=== PATIENT | female | born 1970 | race Caucasian/White ===

== ENCOUNTER 2017-08-07 11:50 | Emergency (ER) | payer BC, OTHER ==
--- NOTE | 2017-08-07 13:12 | ER ---
Nurse's Notes [facility] Name: Vale Fuentes Age: 47 yrs Sex: Female : 1970 Arrival Date: 08/07/2017 Time: 11:54 Bed 13 Private MD: None, None Diagnosis: Cutaneous abscess of left axilla Presentation: 08/07 12:35 Presenting complaint: Patient states: abscess to left axilla X 2 weeks, draining iw yesterday, started feeling achy. Transition of care: patient was not received from another setting of care. Onset of symptoms was July 26, 2017. Risk Assessment: Do you want to hurt yourself or someone else? Patient reports no desire to harm self or others. Initial Sepsis Screen: Does the patient meet any 2 criteria? No. Patient's initial sepsis screen is negative. Does the patient have a suspected source of infection? No. Patient's initial sepsis screen is negative. Care prior to arrival: None. 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 - Social history:: Smoking status: Patient/guardian denies using tobacco. - Ebola Screening: : Patient negative for fever greater than or equal to 101.5 degrees Fahrenheit, and additional compatible Ebola Virus Disease symptoms Patient denies exposure to infectious person Patient denies travel to an Ebola-affected area in the 21 days before illness onset No symptoms or risks identified at this time. Screenin:45 Abuse screen: Denies threats or abuse. Nutritional screening: No deficits noted. aa5 Tuberculosis screening: No symptoms or risk factors identified. Fall Risk None identified. Assessment: 12:45 General: Appears comfortable, Behavior is calm, cooperative. Pain: Complains of pain in aa5 left axillae Pain does not radiate. Pain currently is 5 out of 10 on a pain scale. Quality of pain is described as tender, Pain began 2 weeks ago Is continuous. Neuro: Level of Consciousness is awake, alert, obeys commands, Oriented to person, place, time, situation. Cardiovascular: Heart tones S1 S2 present Rhythm is regular. Respiratory: Airway is patent Respiratory effort is even, unlabored, Respiratory pattern is regular, symmetrical. GI: No signs and/or symptoms were reported involving the gastrointestinal system. : No signs and/or symptoms were reported regarding the genitourinary system. EENT: No signs and/or symptoms were reported regarding the EENT system. Derm: Skin is pink, warm \T\ dry. Abscess located on to left axillae is 2 abscess noted, one open and not draining at this time and one closed. Musculoskeletal: Range of motion: intact in all extremities. Vital Signs: 12:36 BP 138 / 88; Pulse 89; Resp 16 S; Temp 98.2; Pulse Ox 99% on R/A; Weight 54.43 kg; iw Height 5 ft. 2 in. (157.48 cm); Pain 5/10; 13:28 BP 119 / 77; Pulse 68; Resp 18; Pulse Ox 100% on R/A; tl3 12:36 Body Mass Index 21.95 (54.43 kg, 157.48 cm) iw ED Course: 11:54 Patient arrived in ED. mr 11:55 None, None is Private Physician. mr 12:36 Triage completed. iw 12:36 Arm band placed on. iw 12:40 Caitlin Campos FNP-C is [facility]. snw 12:40 Rogerio Ordonez MD is Attending Physician. snw 12:44 Silva Cornelius RN is Primary Nurse. aa5 12:45 Patient has correct armband on for positive identification. Placed in gown. Bed in low aa5 position. Call light in reach. Side rails up X2. Adult w/ patient. 13:02 Report given to BRYNN Leos. aa5 13:10 Miguel Brown MD is Referral Physician. snw 13:28 No provider procedures requiring assistance completed. Patient did not have IV access tl3 during this emergency room visit. Administered Medications: No medications were administered Outcome: 13:11 Discharge ordered by . snw 13:27 Discharged to home ambulatory. tl3 13:27 Condition: stable 13:27 Discharge instructions given to patient, family, Instructed on discharge instructions, follow up and referral plans. medication usage, Demonstrated understanding of instructions, follow-up care, medications, wound care, Prescriptions given X 3. 13:29 Patient left the ED. tl3 Signatures: Caitlin Campos, RACHAEL-C MANAGER SHIPPING-Trangw Ailin Molina Irene, RN Silva Ernst RN RN aa5 Dafne Jefferson RN RN tl3 Corrections: (The following items were deleted from the chart) 16:41 13:06 Report given to BRYNN Leos aa5
--- NOTE | 2017-08-07 13:12 | EDPHYS ---
Physician Documentation [facility] Name: Vale Fuentes Age: 47 yrs Sex: Female : 1970 Arrival Date: 08/07/2017 Time: 11:54 Bed 13 Private MD: None, None ED Physician Rogerio Ordonez HPI: 08/07 13:15 This 47 yrs old Female presents to ER via Ambulatory with complaints of Cyst. snw 13:15 Onset: The symptoms/episode began/occurred suddenly. Associated signs and symptoms: snw Pertinent positives: malaise, nausea. Modifying factors: The patient symptoms are alleviated by nothing, the patient symptoms are aggravated by pressure. The patient has not experienced similar symptoms in the past. The patient has not recently seen a physician, has seen Dr. Brown in the past. 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 - Social history:: Smoking status: Patient/guardian denies using tobacco. - Ebola Screening: : Patient negative for fever greater than or equal to 101.5 degrees Fahrenheit, and additional compatible Ebola Virus Disease symptoms Patient denies exposure to infectious person Patient denies travel to an Ebola-affected area in the 21 days before illness onset No symptoms or risks identified at this time. ROS: 13:15 Constitutional: Negative for fever, chills, and weight loss, + malaise Eyes: Negative snw for injury, pain, redness, and discharge, ENT: Negative for injury, pain, and discharge, Neck: Negative for injury, pain, and swelling, Cardiovascular: Negative for chest pain, palpitations, and edema, Respiratory: Negative for shortness of breath, cough, wheezing, and pleuritic chest pain. 13:15 Back: Negative for injury and pain, : Negative for injury, bleeding, discharge, and swelling, MS/Extremity: Negative for injury and deformity, Neuro: Negative for headache, weakness, numbness, tingling, and seizure, Psych: Negative for depression, anxiety, suicide ideation, homicidal ideation, and hallucinations. 13:15 Abdomen/GI: Positive for nausea. 13:15 Skin: Positive for abscess, of the left axilla. Exam: 13:15 Constitutional: This is a well developed, well nourished patient who is awake, alert, snw and in no acute distress. Head/Face: Normocephalic, atraumatic. Eyes: Pupils equal round and reactive to light, extra-ocular motions intact. Lids and lashes normal. Conjunctiva and sclera are non-icteric and not injected. Cornea within normal limits. Periorbital areas with no swelling, redness, or edema. ENT: Nares patent. No nasal discharge, no septal abnormalities noted. Tympanic membranes are normal and external auditory canals are clear. Oropharynx with no redness, swelling, or masses, exudates, or evidence of obstruction, uvula midline. Mucous membranes moist. Neck: Trachea midline, no thyromegaly or masses palpated, and no cervical lymphadenopathy. Supple, full range of motion without nuchal rigidity, or vertebral point tenderness. No Meningismus. Chest/axilla: Normal chest wall appearance and motion. Nontender with no deformity. Left axilla with 2 localized abscesses in linear alignment. + concern for tunneling, Moderate edema/induation. inferior abscess with + purulent discharge. Superior papule unroofed. Cardiovascular: Regular rate and rhythm with a normal S1 and S2. No gallops, murmurs, or rubs. Normal PMI, no JVD. No pulse deficits. Respiratory: Lungs have equal breath sounds bilaterally, clear to auscultation and percussion. No rales, rhonchi or wheezes noted. No increased work of breathing, no retractions or nasal flaring. Abdomen/GI: Soft, non-tender, with normal bowel sounds. No distension or tympany. No guarding or rebound. No evidence of tenderness throughout. Back: No spinal tenderness. No costovertebral tenderness. Full range of motion. Skin: Warm, dry with normal turgor. Normal color with no rashes, no lesions, and no evidence of cellulitis. MS/ Extremity: Pulses equal, no cyanosis. Neurovascular intact. Full, normal range of motion. Neuro: Awake and alert, GCS 15, oriented to person, place, time, and situation. Cranial nerves II-XII grossly intact. Motor strength 5/5 in all extremities. Sensory grossly intact. Cerebellar exam normal. Normal gait. Psych: Awake, alert, with orientation to person, place and time. Behavior, mood, and affect are within normal limits. Vital Signs: 12:36 BP 138 / 88; Pulse 89; Resp 16 S; Temp 98.2; Pulse Ox 99% on R/A; Weight 54.43 kg; iw Height 5 ft. 2 in. (157.48 cm); Pain 5/10; 13:28 BP 119 / 77; Pulse 68; Resp 18; Pulse Ox 100% on R/A; tl3 12:36 Body Mass Index 21.95 (54.43 kg, 157.48 cm) iw MDM: 12:40 Patient medically screened. snw 13:21 Data reviewed: vital signs, nurses notes. Data interpreted: Pulse oximetry: on room air snw is 99 %. Interpretation: normal. Counseling: I had a detailed discussion with the patient and/or guardian regarding: the historical points, exam findings, and any diagnostic results supporting the discharge/admit diagnosis, the presence of at least one elevated blood pressure reading (>120/80) during this emergency department visit, the need for outpatient follow up, to return to the emergency department if symptoms worsen or persist or if there are any questions or concerns that arise at home. Special discussion: I have referred the patient to see his PCP for further evaluation of high blood pressure. I discussed in detail with the patient the higher chance of wound infection based on his presenting history. Based on the history and exam findings, there is no indication for further emergent testing or inpatient evaluation. I discussed with the patient/guardian the need to see the general surgeon for further evaluation of the symptoms. I discussed with the patient/guardian the need to see the primary care provider for further evaluation of the symptoms. Administered Medications: No medications were administered Disposition: 08/07/17 13:11 Discharged to Home. Impression: Cutaneous abscess of left axilla. - Condition is Stable. - Discharge Instructions: Abscess, MRSA Infection, Adult, Heat Therapy. - Prescriptions for Clindamycin HCl 300 mg Oral Capsule - take 1 capsule by ORAL route every 8 hours for 10 days; 30 capsule. Diclofenac Sodium 75 mg Oral Tablet Sustained Release - take 1 tablet by ORAL route 2 times per day; 30 tablet. Bactroban 2 % Topical Ointment - Apply to affected area 1 application by TOPICAL route every 12 hours; 30 gram. - Work release form, Medication Reconciliation Form, Thank You Letter, Antibiotic Education, Prescription Opioid Use form. - Follow up: Miguel Brown MD; When: 5 - 6 days; Reason: Recheck today's complaints, Continuance of care. Addendum: 08/08/2017 16:09 Co-signature as Attending Physician, Rogerio Ordonez MD I agree with the assessment and c calvillo plan of care. Signatures: Rogerio Ordonez MD MD cha Therrien, Shelly, BATTERBOARD SETTER-C BATTERBOARD SETTER-Csnw Alysha Velazquez, RN RN iw Dafne Jefferson RN RN tl3 Corrections: (The following items were deleted from the chart) 08/07 13:29 13:11 08/07/2017 13:11 Discharged to Home. Impression: Cutaneous abscess of left tl3 axilla. Condition is Stable. Forms are Medication Reconciliation Form, Thank You Letter, Antibiotic Education, Prescription Opioid Use. Follow up: Miguel Brown; When: 5 - 6 days; Reason: Recheck today's complaints, Continuance of care. snw
== END 2017-08-07 13:29 | disposition home or self-care (01) ==
LOC: ER 11:50
DX: L02.412 Cutaneous abscess of left axilla (principal); Z88.0 Allergy status to penicillin
CPT/HCPCS: 99282

== ENCOUNTER 2018-03-28 17:49 | Emergency (ER) | payer BC, OTHER ==
[2018-03-28] MEDS ORDERED: TETANUS & DIPHTHERIA TOX,ADULT 0.5 ML VIAL ONE (19:17)
[2018-03-28] MEDS ORDERED: LIDOCAINE 1% MPF 5 ML VIAL ONE (19:18)
--- NOTE | 2018-03-28 19:28 | RAD REPORT ---
EXAM DESCRIPTION: RAD - Hand Right 3 View - 03/28/2018 7:19 pm CLINICAL HISTORY: Dog bite right hand, hand pain COMPARISON: None. FINDINGS: No fracture is identified. There is no dislocation or periosteal reaction noted. No forei gn body or other soft tissue abnormality. IMPRESSION: Negative right hand examination.
[2018-03-28] MEDS ORDERED: BUPIVACAINE 0.5% PF 10 ML VIAL ONE (19:33)
--- NOTE | 2018-03-28 21:08 | EDPHYS ---
Physician Documentation [facility] Name: Vale Fuentes Age: 47 yrs Sex: Female : 1970 Arrival Date: 03/28/2018 Time: 17:53 Bed 12 Private MD: None, None ED Physician Rogerio Ordonez HPI: 03/28 18:50 This 47 yrs old Female presents to ER via Ambulatory with complaints of Dog cp Bite. 18:50 The patient was bitten on the right hand, by a dog, while trying to stop animals from cp fighting, at home. 18:50 Onset: The symptoms/episode began/occurred just prior to arrival. Animal information: cp Animal control has been notified. Secondary to the bite the patient reports a laceration, that is deep, multiple puncture wounds, that are superficial. Associated signs and symptoms: Pertinent negatives: fever, motor deficit. Patient reports she was bitten attempting to prevent fight between two of her pet dogs. Historical: - Allergies: 18:02 PENICILLINS; hb - Home Meds: 18:02 Adderall XR Oral [Active]; Fluoxetine Oral [Active]; hb - PSHx: 18:02 ; Hernia repair; eye; hb - Immunization history:: Adult Immunizations up to date. - Social history:: Smoking status: Patient/guardian denies using tobacco. - Ebola Screening: : No symptoms or risks identified at this time. ROS: 19:00 Constitutional: Negative for fever, poor PO intake. cp 19:00 Eyes: Negative for injury, pain, redness, and discharge. cp 19:00 ENT: Negative for drainage from ear(s), ear pain, sore throat, difficulty swallowing, difficulty handling secretions. 19:00 Cardiovascular: Negative for chest pain. 19:00 Respiratory: Negative for cough, shortness of breath. 19:00 Abdomen/GI: Negative for abdominal pain. 19:00 Skin: Positive for laceration(s), of the right hand, dog bite, Negative for rash. 19:00 Neuro: Negative for numbness. 19:00 All other systems are negative. Exam: 19:15 Constitutional: The patient appears in no acute distress, alert, awake, non-toxic, well cp developed, well nourished. 19:15 Head/Face: Normocephalic, atraumatic. cp 19:15 Eyes: Periorbital structures: appear normal, Conjunctiva: normal, no exudate, no injection, Lids and lashes: appear normal, bilaterally. 19:15 ENT: External ear(s): are unremarkable, Nose: is normal, Mouth: Lips: moist, Oral mucosa: moist, Posterior pharynx: Airway: no evidence of obstruction, patent. 19:15 Chest/axilla: Inspection: normal. 19:15 Cardiovascular: Rate: normal. 19:15 Respiratory: the patient does not display signs of respiratory distress, Respirations: normal, no use of accessory muscles, no retractions, no splinting, no tachypnea. 19:15 Abdomen/GI: Exam negative for discomfort, distension, guarding, Inspection: abdomen appears normal. 19:15 Musculoskeletal/extremity: Extremities: grossly normal except: noted in the right hand: bite, laceration, ROM: full active range of motion, in the right hand, Perfusion: the extremity is normally perfused throughout, Sensation intact. Tendon exam: specific tendon testing normal through active and passive range of motion 19:15 Skin: injury, laceration(s), the wound is approximately 3 cm(s), of the web space of right index and middle fingers, that can be described as no foreign body, linear, with mild bleeding, puncture(s), that are superficial, of the dorsum and giles side of right hand. Vital Signs: 18:00 BP 132 / 78; Pulse 89; Resp 16; Temp 98.4; Pulse Ox 100% on R/A; Pain 4/10; hb 21:04 BP 131 / 78; Pulse 81; Resp 20; Pulse Ox 99% on R/A; aj Laceration: 21:05 Wound Repair of 3cm ( 1.2in ) subcutaneous laceration to web space of right index and cp middle fingers. Linear shaped.. Minimal bleeding noted.. Distal neuro/vascular/tendon intact. Anesthesia: Wound infiltrated with 6 mls of 1% lidocaine, Local anesthetic administered with Lido/Marcaine. Wound prep: Extensive cleansing by me, Wound irrigation by me. Skin closed with 3 4-0 Prolene using loose closure with interupted sutures. Dressed with Bacitracin, non-adherent dressing. Patient tolerated well. MDM: 18:42 Patient medically screened. cp 19:00 Differential diagnosis: superficial laceration, tendon injury, vascular injury, rabies, cp cellulitis, open fracture. 21:06 Data reviewed: vital signs, nurses notes, radiologic studies, plain films. cp 21:06 Test interpretation: by ED physician or midlevel provider: plain radiologic studies. cp Counseling: I had a detailed discussion with the patient and/or guardian regarding: the historical points, exam findings, and any diagnostic results supporting the discharge/admit diagnosis, radiology results, the need for outpatient follow up, a hand specialist, to return to the emergency department if symptoms worsen or persist or if there are any questions or concerns that arise at home. Response to treatment: the patient's symptoms have markedly improved after treatment, and as a result, I will discharge patient. Special discussion: I discussed in detail with the patient the higher chance of wound infection based on his presenting history. will prescribe clindamycin due to PCN allergy, wound care. 03/28 18:07 Order name: Hand Right 3 View XRAY; Complete Time: 20:21 hb 03/28 20:21 Interpretation: Report reviewed. cp 03/28 19:19 Order name: Dressing - Wound; Complete Time: 19:25 cp 03/28 19:19 Order name: Gloves, Sterile; Complete Time: 19:25 cp 03/28 19:19 Order name: Setup Suture Tray; Complete Time: 19:25 cp 03/28 19:38 Order name: Wound Care; Complete Time: 20:54 cp 03/28 21:05 Order name: Wound dressing; Complete Time: 21:06 cp Administered Medications: 19:10 Drug: Tetanus-Diphtheria Toxoid Adult 0.5 ml {Barber Apprentice: [employer]. Exp: aj 03/04/2020. Lot #: [id number]. } Route: IM; Site: right deltoid; 21:20 Follow up: Response: No adverse reaction aj 20:09 Drug: Lidocaine (1 %) 5 ml Volume: 5 ml; Route: Infiltration; aj 20:09 Drug: Marcaine (0.5 %) 5 ml Volume: 10 ml; Route: Infiltration; aj Disposition: 03/29 06:54 Co-signature as Attending Physician, Rogerio Ordonez MD I agree with the assessment and hilario plan of care. Disposition: 03/28/18 21:07 Discharged to Home. Impression: Bitten by dog, Laceration without foreign body of right hand. - Condition is Stable. - Discharge Instructions: Laceration Care, Adult, Animal Bite. - Prescriptions for Clindamycin HCl 300 mg Oral Capsule - take 1 capsule by ORAL route every 6 hours for 10 days; 40 capsule. Tylenol- Codeine #3 300-30 mg Oral Tablet - take 2 tablets by ORAL route every 6 hours As needed no driving while taking medication; 15 tablet. - Medication Reconciliation Form, Thank You Letter, Antibiotic Education, Prescription Opioid Use form. - Follow up: Vinny Morgan MD; When: 48 Hours; Reason: Wound Recheck. - Problem is new. - Symptoms have improved. Signatures: Dispatcher [employer] EDMelissa Frazier RN RN Rogerio Douglas MD MD cha Page, Corey, PA PA cp Baxter, Heather RN RN hb Corrections: (The following items were deleted from the chart) 03/28 21:20 21:07 03/28/2018 21:07 Discharged to Home. Impression: Bitten by dog; Laceration aj without foreign body of right hand. Condition is Stable. Forms are Medication Reconciliation Form, Thank You Letter, Antibiotic Education, Prescription Opioid Use. Follow up: Vinny Morgan; When: 48 Hours; Reason: Wound Recheck. Problem is new. Symptoms have improved. cp
--- NOTE | 2018-03-28 21:08 | ER ---
Nurse's Notes [facility] Name: Vale Fuentes Age: 47 yrs Sex: Female : 1970 Arrival Date: 03/28/2018 Time: 17:53 Bed 12 Private MD: None, None Diagnosis: Bitten by dog;Laceration without foreign body of right hand Presentation: 03/28 18:00 Presenting complaint: Dog bite to right hand while trying to separate her 2 fighting dogs. Pat also reports numbness to right index finger distal to injury. Transition of care: patient was not received from another setting of care. Onset of symptoms was March 28, 2018 at 16:00. Risk Assessment: Do you want to hurt yourself or someone else? Patient reports no desire to harm self or others. Care prior to arrival: None. 18:00 Method Of Arrival: Ambulatory 18:00 Acuity: RAFA 4 hb Historical: - Allergies: 18:02 PENICILLINS; hb - Home Meds: 18:02 Adderall XR Oral [Active]; Fluoxetine Oral [Active]; hb - PSHx: 18:02 ; Hernia repair; eye; hb - Immunization history:: Adult Immunizations up to date. - Social history:: Smoking status: Patient/guardian denies using tobacco. - Ebola Screening: : No symptoms or risks identified at this time. Screenin:42 Abuse screen: Denies threats or abuse. Denies injuries from another. Nutritional aj screening: No deficits noted. Tuberculosis screening: No symptoms or risk factors identified. Fall Risk None identified. Assessment: 18:42 General: Appears in no apparent distress. comfortable, Behavior is calm, cooperative, aj appropriate for age. Pain: Complains of pain in dorsal aspect of proximal phalanx of right index finger. Neuro: Level of Consciousness is awake, alert, obeys commands, Oriented to person, place, time, situation, Appropriate for age. Respiratory: Airway is patent Respiratory effort is even, unlabored, Respiratory pattern is regular, symmetrical. Derm: Skin is intact, is healthy with good turgor, Skin is pink, warm \T\ dry. normal. Injury Description: Bite sustained to dorsal aspect of proximal phalanx of right index finger caused by a dog, is full thickness, from animal, was sustained 30-60 minutes ago. 18:51 Reassessment: Report to [facility] Department regarding animal bite. aj Vital Signs: 18:00 BP 132 / 78; Pulse 89; Resp 16; Temp 98.4; Pulse Ox 100% on R/A; Pain 4/10; hb 21:04 BP 131 / 78; Pulse 81; Resp 20; Pulse Ox 99% on R/A; aj ED Course: 17:53 Patient arrived in ED. sb2 17:54 None, None is Private Physician. sb2 18:02 Triage completed. hb 18:02 Arm band placed on right wrist. hb 18:42 Melissa Murillo, RN is Primary Nurse. aj 18:42 Rogerio Zamudio PA is PHCP. cp 18:42 Will Prakash MD is Attending Physician. cp 18:42 Patient has correct armband on for positive identification. aj 19:15 Attending Physician role handed off by Will Prakash MD cp 19:15 Rogerio Ordonez MD is Attending Physician. cp 19:20 Hand Right 3 View XRAY In Process Unspecified. EDMS 21:06 Vinny Morgan MD is Referral Physician. cp 21:19 No provider procedures requiring assistance completed. Patient did not have IV access aj during this emergency room visit. Dressings: [place] x 1 dorsal aspect of proximal phalanx of right index finger. Administered Medications: 19:10 Drug: Tetanus-Diphtheria Toxoid Adult 0.5 ml {Unit Aide: [employer]. Exp: aj 03/04/2020. Lot #: [id number]. } Route: IM; Site: right deltoid; 21:20 Follow up: Response: No adverse reaction aj 20:09 Drug: Lidocaine (1 %) 5 ml Volume: 5 ml; Route: Infiltration; aj 20:09 Drug: Marcaine (0.5 %) 5 ml Volume: 10 ml; Route: Infiltration; aj Outcome: 21:07 Discharge ordered by MD. cp 21:20 Discharged to home ambulatory, with family. aj 21:20 Condition: good 21:20 Discharge instructions given to patient, Instructed on discharge instructions, follow up and referral plans. medication usage, Demonstrated understanding of instructions, follow-up care, medications, Prescriptions given X 2. 21:20 Patient left the ED. aj Signatures: Dispatcher [employer] EDRI Melissa Murillo RN RN aj Page, Corey, PA PA cp Baxter, Heather, RN RN hb Billeau, Ana sb2
== END 2018-03-28 21:20 | disposition home or self-care (01) ==
LOC: ER 17:49
PROC: 0JQJ0ZZ Repair Right Hand Subcutaneous Tissue and Fascia, Open Approach (ICD-10-PCS; principal; 2018-03-28)
DX: S61.451A Open bite of right hand, initial encounter (principal); W54.0XXA Bitten by dog, initial encounter; Z23 Encounter for immunization
CPT/HCPCS: 90714; 99283